=== PATIENT | male | born 1955 | race Caucasian/White ===

== ENCOUNTER 2023-10-02 06:50 | Day surgery (SDC) | payer BC ==
[2023-10-02] MEDS: Lactated Ringers 1,000 ML IV SCH (07:06)
[2023-10-02] MEDS ORDERED: fentaNYL 50 MCG/ML SDV ONE (07:25)
[2023-10-02] MEDS ORDERED: Ketamine 200 MG/20 ML MDV ONE (07:25)
[2023-10-02] MEDS ORDERED: Propofol 200 MG/20 ML SDV ONE (07:25)
[2023-10-02] MEDS ORDERED: ePHEDrine 50 MG/ML SDV ONE (07:25)
== END 2023-10-02 08:36 | disposition home or self-care (01) ==
LOC: CC.SDS 06:50
PROVIDERS: ATTEND Family Medicine
DX: D12.2 Benign neoplasm of ascending colon (principal); K57.30 Diverticulosis of large intestine without perforation or abscess without bleeding; N40.0 Benign prostatic hyperplasia without lower urinary tract symptoms; Z88.8 Allergy status to other drugs, medicaments and biological substances; Z79.899 Other long term (current) drug therapy
CPT/HCPCS: 45380; J2704; J3010; J7120; 00811; J3490